=== PATIENT | female | born 1960 | race Caucasian/White ===

== ENCOUNTER → 2018-10-14 | Outpatient (CLI) | payer OTHER | LOC: GMAE 11:38 | PROVIDERS: ATTEND Family Medicine | DX: Z00.01 Encounter for general adult medical examination with abnormal findings (principal) ==

== ENCOUNTER → 2019-10-17 | Outpatient (CLI) | payer OTHER | LOC: GMAE 10:52 | PROVIDERS: ATTEND Family Medicine | DX: Z00.01 Encounter for general adult medical examination with abnormal findings (principal) ==

== ENCOUNTER 2020-02-20 05:31 | Day surgery (SDC) | payer OTHER ==
[2020-02-20] MEDS ORDERED: PROPARACAINE 0.5% OPHTH SOL 15 ML BTTL ONE (05:51)
[2020-02-20] MEDS ORDERED: TROP1%/CYCLOPEN 1%/PHENYL 2.5% DROPS ONE (05:51)
[2020-02-20] MEDS ORDERED: MOXIFLOXACIN HCL (OPHTH) 1 DROP DROPS ONE (05:51)
[2020-02-20] MEDS ORDERED: MIDAZOLAM INJ 2 MG/2 ML VIAL ONE ×2 (07:05→07:36)
[2020-02-20] MEDS ORDERED: PROPARACAINE 0.5% OPHTH SOL 15 ML BTTL LEFT_EYE ONE (07:18)
[2020-02-20] MEDS ORDERED: LIDOCAINE 1% MPF 2 ML VIAL INJ ONE (07:25)
[2020-02-20] MEDS ORDERED: TOBRAMYCIN SULF 0.3 % OPHT SOL 1 DROP LEFT_EYE ONE ×2 (07:26→07:55)
[2020-02-20] MEDS ORDERED: DEXAMETHASONE 0.1% OPHTH SOL 1 DROP LEFT_EYE ONE ×2 (07:26→07:55)
[2020-02-20] MEDS ORDERED: MOXIFLOXACIN HCL (OPHTH) 1 DROP DROPS LEFT_EYE ONE ×2 (07:26→07:55)
[2020-02-20] MEDS ORDERED: BRIMONIDINE 0.2% OPHTH DROPS LEFT_EYE ONE ×2 (07:26→07:55)
== END 2020-02-20 08:42 | disposition home or self-care (01) ==
LOC: AMB 05:31
PROVIDERS: ATTEND Ophthalmology
DX: H25.12 Age-related nuclear cataract, left eye (principal); Z79.899 Other long term (current) drug therapy
CPT/HCPCS: 66984; 66999; J2250; V2788

== ENCOUNTER 2020-11-23 14:28 | Emergency (ER) | payer OTHER ==
[2020-11-23] MEDS ORDERED: ALUM & MAG HYDROX-SIMETHICONE 30 ML, LIDOCAINE VISCOUS 2% 15 ML PO ONE ×2 (14:44)
--- NOTE | 2020-11-23 15:26 | RAD ---
EXAM DESCRIPTION: Chest,2 Views CLINICAL HISTORY: 60 years Female, choked COMPARISON: None. FINDINGS: 2 views/radiographs Heart size and pulmonary vessels are within normal limits. There is no pneumothorax or pleural effusion. The lungs are clear bilaterally. The soft tissues are unremarkable. No acute osseous findings. IMPRESSION: No acute cardiopulmonary abnormality. Electronically signed by: Gaetano Armenta MD 11/23/2020 3:24 PM [employer]
--- NOTE | 2020-11-23 16:15 | ED.PDOC ---
History of Present Illness - General Chief Complaint: General Stated Complaint: choked on chicken,unable to swallow Time Seen by Provider: 11/23/20 14:39 Source: patient Exam Limitations: no limitations - History of Present Illness Initial Comments: The patient is a 60-year-old female presented emergency room secondary to having gotten choked on a piece of fried chicken that she was eating. There was a dye tank tender and no bones were present. The patient has had a history of some esophageal stenosis in the past but has not had any recent issues. She did have a dilation several years ago. At the time she did throw up a little bit of the chicken. She is also had a few little episodes of spitting up mucus. The last about was about 20 minutes prior to arrival. Since then she has been able to tolerate small sips of water. She is not currently nauseated. She does feel some discomfort substernally still. No vomiting of any blood. Timing/Duration: 1/2 hour Severity: moderate Improving Factors: nothing Worsening Factors: eating Associated Symptoms: chest pain Allergies/Adverse Reactions: Allergies NO KNOWN ALLERGY Allergy (Verified 02/20/20 06:50) Home Medications: Ambulatory Orders Levothyroxine Sodium 50 mcg PO DAILY 02/16/20 Pravastatin Sodium 1 tablet PO DAILY 02/16/20 Review of Systems - Review of Systems Constitutional: States: no symptoms reported EENTM: States: no symptoms reported Respiratory: States: no symptoms reported Cardiology: States: no symptoms reported Gastrointestinal/Abdominal: States: see HPI Genitourinary: States: no symptoms reported Musculoskeletal: States: no symptoms reported Skin: States: no symptoms reported Neurological: States: no symptoms reported Endocrine: States: no symptoms reported All other Systems: No Change from Baseline Past Medical History (General) - Patient Medical History Hx Stroke: No Hx Congestive Heart Failure: No Hx Thyroid Disease: Yes Hx Diabetes: No Surgical History: appendectomy, cholecystectomy, Hysterectomy - Vaccination History Hx Influenza Vaccination: Yes Hx Pneumococcal Vaccination: No - Social History Hx Tobacco Use: No Family Medical History - Family History Mother Family History: Unknown Living Status: Unknown Physical Exam - Physical Exam General Appearance: Alert, Comfortable, No apparent distress Eye Exam: bilateral normal Ears, Nose, Throat: hearing grossly normal, normal pharynx Neck: full range of motion, supple Respiratory: lungs clear, normal breath sounds, no respiratory distress, no accessory muscle use Cardiovascular/Chest: normal peripheral pulses, no edema, other - Regular rate Peripheral Pulses: radial,right: 2+, radial,left: 2+ Gastrointestinal/Abdominal: non tender, soft Rectal Exam: deferred Extremity: normal range of motion, no pedal edema, normal capillary refill 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 The patient is a 60-year-old female presented emergency room after having gotten a food bolus temporarily stuck in the esophagus. After a GI cocktail, the bolus seems to have passed. She has tolerated water and yogurt at this point. The patient should expect some irritation of the esophagus over the next week as there will likely be some mild swelling. She is to maintain a soft diet and keep her self well-hydrated. Additionally she needs to take some [id number] Pepcid twice daily for the next week to reduce the acid wash back into the esophagus. The patient has had a history of esophageal stricture in the past and should go ahead and make an appointment with the front counter attendant for a repeat evaluation in the near future. ER warnings are given. Keep routine follow-up with primary care doctor. [email or web address] Departure - Departure Clinical Impression: Bolus impaction of digestive tract Disposition: Discharge to Home or Self Care Condition: Fair Departure Forms: ED Discharge - Pt. Copy, Patient Portal Self Enrollment Instructions: Esophageal Stricture Diet: other Activity: increase activity as tolerated Referrals: SHALINI SOW MD [Primary Care Provider] - 1-2 Weeks Home Medications: Ambulatory Orders Levothyroxine Sodium 50 mcg PO DAILY 02/16/20 Pravastatin Sodium 1 tablet PO DAILY 02/16/20 Additional Instructions: The patient is a 60-year-old female presented emergency room after having gotten a food bolus temporarily stuck in the esophagus. After a GI cocktail, the bolus seems to have passed. She has tolerated water and yogurt at this point. The patient should expect some irritation of the esophagus over the next week as there will likely be some mild swelling. She is to maintain a soft diet and keep her self well-hydrated. Additionally she needs to take some [id number] Pepcid twice daily for the next week to reduce the acid wash back into the esophagus. The patient has had a history of esophageal stricture in the past and should go ahead and make an appointment with the front counter attendant for a repeat evaluation in the near future. ER warnings are given. Keep routine follow-up with primary care doctor.
[2020-11-23 16:58] VITALS: BP 133/78; TEMP 98.2; O2SAT 98
== END 2020-11-23 16:45 | disposition home or self-care (01) ==
LOC: ER 14:28
DX: T18.128A Food in esophagus causing other injury, initial encounter (principal); E07.9 Disorder of thyroid, unspecified; Z79.899 Other long term (current) drug therapy; Z98.890 Other specified postprocedural states